=== PATIENT | male | born 1955 | race Caucasian/White ===

== ENCOUNTER → 2017-01-05 | Outpatient (CLI) | payer OTHER ==
[2017-01-05 11:36] LABS: Hemoglobin A1C 6.8 % (4.2-6.1)
== END ==
LOC: LABWHC1 10:58
PROVIDERS: ATTEND Family Medicine
DX: R73.9 Hyperglycemia, unspecified (principal)
CPT/HCPCS: 36415; 83036

== ENCOUNTER → 2022-08-20 | Outpatient (CLI) | payer OTHER ==
--- NOTE | 2022-08-20 11:06 | CA ---
Lexiscan Nuclear Stress Test Report Name: Filiberto Cotter Exam Date: 08/20/2022 10:00 Exam Location: [place] [facility] Ht (in): 68 Wt (lb): 178 BSA: 1.95 Ordering Phys: Denise Blevins DO Referring Phys: Marianna Alas PAC Technologist: Mani Garcia Age: 67 Gender: M : 1955 Procedure CPT: Indications: I20.9 angina pectoris ICD-10 Codes: Patient History: Medications: Meds past 24 hrs: Pretest Chest Pain: STRESS TEST Lexiscan Protocol Exercise Duration (min:sec): 02:[address] Depressions (mm): Angina Score: Torres Score: Resting HR (bpm): 64 Peak HR (bpm): 98 Resting BP (mmHg): 133 / 67 Peak BP (mmHg): 148 / 64 MPHR: 153 Target HR: 130 % MPHR: 64 METS: 1.0 Total Dose: Peak Dose: Atropine: Double Product: 89479 BP Response: Stress Termination: PROTOCOL COMPLETE Stress Symptoms: CHEST PAIN 3-4 MINUTES IN RECOVERY Stress Summary: ECG ANALYSIS Resting ECG: Stress ECG: CONCLUSIONS At baseline EKG showed normal sinus rhythm, normal axis, ST depressions and T-wave inversions V3 through V6. Patient recieved IV infusion of Lexiscan 0.4mg and at peak infusion EKG showed mild accentuation of baseline EKG abnormalities. Patient did have chest tightness with Lexiscan infusion and improved after a few minutes into rest. Conclusions: 1. Nonspecific EKG portion secondary baseline EKG abnormalities 2. Nuclear imaging to be reported separately. 3. Chest pain noted with Lexiscan infusion concerning for angina Dr. Obey Hurd DO (Electronically Signed) Final Date: 20 August 2022 11:05
--- NOTE | 2022-08-20 12:30 | NM ---
EXAMINATION TYPE: NM stress lexiscan cardiolite DATE OF EXAM: 08/20/2022 COMPARISON: NONE HISTORY: I20.9 angina TECHNIQUE: After the intravenous administration of 7.9 mCi Tc 99m Sestamibi - Cardiolite resting SPE CT images acquired 45 minutes post injection. The patient received 0.4mg Lexiscan, 25.9 mCi Tc 99m Sestamibi - Stress images obtained [address] injection FINDINGS: Review of stress and rest SPECT images demonstrates decreased perfusion involving the inferior wall o n stress images. Stress-induced ischemia is not excluded. There is also decreased perfusion on stress images involving the anterior wall. Fixed defect involving the cardiac apex and septum. Gated analys is shows normal wall motion with an estimated left ventricular ejection fraction of 40 %. IMPRESSION: Findings felt to reflect stress-induced ischemia.
== END | disposition home or self-care (01) ==
LOC: RADNMMAIN 07:28
PROVIDERS: ATTEND Family Medicine
DX: I20.9 Angina pectoris, unspecified (principal); R07.9 Chest pain, unspecified; R94.31 Abnormal electrocardiogram [ECG] [EKG]
CPT/HCPCS: 93017; 78452; A9500

== ENCOUNTER → 2022-08-21 | Outpatient (CLI) | payer OTHER ==
[2022-08-21 23:59] LABS: HCT 38.6 % (39.6-50.0); HGB 12.6 g/dL (13.0-17.0); MCHC 32.6 g/dL (32.0-37.0); MCV 88.9 fL (80.0-97.0); Mean Platelet Volume 10.8 fL (9.5-12.2); NRBC Per 100 WBC 0 /100 WBCS (0.0-0.0); Platelet Count 145 X 10*3/uL (140-440); RBC 4.34 X 10*6/uL (4.40-5.60); RDW 11.8 % (11.5-14.5); WBC 5.39 X 10*3/uL (4.50-10.00)
[2022-08-22 00:06] LABS: African American GFR (CKD) 102.1 (60.0-200.0); Anion Gap 15.6 mmol/L (10.00-18.00); Blood Urea Nitrogen 7.2 mg/dL (9.0-27.0); Carbon Dioxide 25.4 mmol/L (20.0-27.5); Non-African American GFR(CKD) 88.1 (60.0-200.0); Potassium 4.2 mmol/L (3.5-5.5)
== END | disposition home or self-care (01) ==
LOC: LABPAT 14:31
PROVIDERS: ATTEND Internal Medicine
DX: Z01.812 Encounter for preprocedural laboratory examination (principal); R07.9 Chest pain, unspecified
CPT/HCPCS: 80051; 82565; 84520; 85027

== ENCOUNTER 2022-08-22 09:35 | Day surgery (SDC) | payer OTHER ==
[~2022-08-22 09:35] MED LIST: ALPRAZolam 0.25 MG TAB PO PRN; ALPRAZolam 0.5 MG TAB PO PRN; ASPIRIN 325 MG TAB PO ONE; ATORVASTATIN 80 MG TAB PO ONE; HEPARIN SODIUM,PORCINE 10,000 UNIT in SODIUM CHLORIDE 0.9% 1,000 ML IRRIGATION PRN; HEPARIN SODIUM,PORCINE 2,500 UNIT in SODIUM CHLORIDE 0.9% 250 ML IRRIGATION PRN; NITROGLYCERIN SL TABS 0.4 MG TAB SUBLINGUAL PRN; SODIUM CHLORIDE 0.9% 1,000 ML in EMPTY BAG 1 BAG IV SCH
[2022-08-22] MEDS ORDERED: SODIUM CHLORIDE 0.9% 1,000 ML IV ONE (09:45)
[2022-08-22 09:52] VITALS: RESP 16; TEMP 98.2
[2022-08-22] MEDS ORDERED: VERAPAMIL 2.5 MG/ML 2 ML AMP ONE ×2 (09:54→10:45)
[2022-08-22] MEDS ORDERED: HEPARIN SODIUM 1,000 UN/ML (10ML VL) ONE (09:54)
[2022-08-22] MEDS ORDERED: fentaNYL (PF) 50 MCG/ML 2 ML AMP ONE (09:55)
[2022-08-22 09:57] LABS: Glucose,Whole Blood 129 mg/dL (70-110)
[2022-08-22] MEDS: MIDAZOLAM HCL 10 MG/10 ML VIAL IV ONE ×2 (10:19→10:35)
[2022-08-22] MEDS ORDERED: fentaNYL (PF) 50 MCG/ML 2 ML AMP IV ONE (10:19)
[2022-08-22] MEDS ORDERED: LIDOCAINE 1% INJ 10MG/ML (30 ML VIAL-PF) SQ ONE (10:21)
[2022-08-22] MEDS ORDERED: VERAPAMIL SYRINGE (5 MG/10 ML) INTRAARTER ONE (10:25)
[2022-08-22] MEDS: HEPARIN SODIUM 1,000 UN/ML (10ML VL) IV ONE ×7 (10:32→12:15)
[2022-08-22] MEDS ORDERED: IOPAMIDOL-370 100ML BTL INJ ONE ×2 (11:28→12:15)
[2022-08-22] MEDS ORDERED: NITROGLYCERIN SL TABS 0.4 MG TAB SUBLINGUAL PRN (13:23)
[2022-08-22] MEDS ORDERED: RX INFO: IV CONTRAST WAS GIVEN 1 EACH MISC MISCELLANE PRN (13:25)
[2022-08-22] MEDS ORDERED: ATROPINE SULFATE 0.1 MG/ML 10ML SYRINGE IV PRN (13:25)
[2022-08-22] MEDS ORDERED: MAG HYDROX/AL HYDROX/SIMETH 30 ML CUP PO PRN (13:25)
[2022-08-22] MEDS ORDERED: ZOLPIDEM 5 MG TAB PO PRN (13:25)
[2022-08-22 17:04] VITALS: BP 137/81; PULSE 74
--- NOTE | 2022-08-22 20:17 | P.PRCINT ---
Percutaneous Coronary Int. - Percutaneous Coronary Intervention Percutaneous Coronary Intervention: PROCEDURES PERFORMED: Left heart catheterization, bilateral coronary angiography, IVUS LAD, CSI rotational atherectomy LAD, PCI mid LAD with a 3.5 x 28mm Xience ENOCH, post dilated with a 3.5 NC balloon INDICATION: Chest pain new over the last 3-4 weeks, while at rest consistent with unstable angina, abnormal stress test CONSENT:I have discussed the risks, benefits and alternative therapies for the above-mentioned procedure and for both sedation/analgesia as well as necessary blood product administration, if indicated, as they pertain to this patient. The patient has indicated understanding and acceptance of the risks and procedures discussed. PROCEDURE: After the risks, benefits and alternatives of the above mentioned procedure explained in detail with the patient, informed consent was obtained. Patient was taken to the catheterization lab and prepped and draped in usual fashion. 1% lidocaine was used to anesthetize the right radial artery. Initially there was some resistance at the wrist while advancing the 6Fr sheath and therefore a 5Fr sheath was placed in the right radial artery for diagnostic portion. Left coronary angiography was performed with a 5-[place] JL 3.5 catheter and right coronary angiography was performed with a 5-[place] JR5 catheter in various views. A 5-[place] FR5 catheter was inserted into the left ventricle and pressure measurements were obtained. The decision was made to perform PCI of the mid LAD. The 5Fr sheath was exchanged for the 6Fr sheath with still some difficulty fully advancing however was able to be advanced. Heparin was given. A 6Fr CLS 3.5 guide was used to engage the left main. A 0.014 BMW wire was advanced into the distal LAD. There was some difficulty advancing balloons and therefore a Guideliner was used. Balloon angioplasty was performed with a 2.0 x 12 then 2.5 x 15mm balloon. IVUS was used which showed diffuse heavy calcification, reference vessel 3.5mm however unable to advance catheter past the mid portion of the lesion. Given heavy calcification, decision was made to perform CSI rotational atherectomy. The guideliner and BMW wire were removed and a 0.014 Viper wire was advanced. Next CSI rotational atherectomy was performed at low and high speeds for 3 and 4 runs respectively. Next balloon angioplasty was performed with a 3.5 NC balloon. Next a 3.5 x 28mm Xience ENOCH was placed from just beyond diagonal 1 branch to just short of a larger septal branch. IVUS was performed which showed excellent stent apposition and sizing. There was some difficulty advancing past the distal edge of the stent secondary to tortuosity and calcification. There was a small step down distally however diffuse disease and no dissection. The wire was pulled and final angiograms were performed. Pre intervention there was 95% stenosis and MICHELLE 2 flow and post intervention there was <10% stenosis and MICHELLE 3 flow. The right radial sheath was removed and a TR band was placed with hemostasis achieved. The patient tolerated the procedure well. Patient was transported back to the post catheterization holding area in stable condition. Conscious Sedation: Patient was monitored under the direct supervision of vision of myself for conscious sedation using Versed and fentanyl for a total duration of 121 minutes HEMODYNAMICS: Ao: 106/48 LV: 102/9, LVEDP 22mmHg SELECTIVE CORONARY ARTERIOGRAPHY: LEFT MAIN: The left main is a large caliber vessel which bifurcates into the LAD and circumflex. There is no significant stenosis. LEFT ANTERIOR DESCENDING CORONARY ARTERY: LAD is a large caliber vessel which wraps around to the apex. There is diffuse heavily calcified 20-30% stenosis of the proximal to mid LAD. There is heavy circumferential calcium of the mid LAD with a 95% stenosis. There is MICHELLE 2 flow. Diagonal 1 branch is a small caliber branch with a proximal 90% stenosis. Otherewise there are mild luminal irregularities. LEFT CIRCUMFLEX CORONARY ARTERY: Left circumflex is a moderate caliber vessel with a proximal 60% stenosis at the level of a small to moderate caliber OM1 branch. OM1 has a proximal 60% stenosis and a mid OM1 50% stenosis. Otherwise there are mild luminal irregularities of the mid to distal circumflex and OM2. RIGHT CORONARY ARTERY: The right coronary artery is a small to moderate caliber vessel which gives off a PDA and PLV branch and is the dominant vessel. There is heavy calcification throughout and a proximal RCA 100% stenosis. FINAL IMPRESSION: 1. CAD as described above including 100% RCA stenosis with left to right collaterals, 95% mid LAD stenosis, 90% small caliber diagonal 1 stenosis, 60% proximal circumflex and proximal OM1 stenosis 2. S/p CSI rotational atherectomy LAD, PCI mid LAD with a 3.5 x 28mm Xience ENOCH, post dilated with a 3.5 NC balloon 3. Elevated left sided filling pressures PLAN: 1. Aggressive risk factor modification per most recent ACC/AHA guidelines. 2. Continue dual antiplatelets for 12 months. 3. If continues to have angina, may consider iFR of circumflex or PCI DENTAL CERAMIST of RCA however appears to be a long calcified lesion.
[2022-08-22] MEDS ORDERED: EZETIMIBE 10 MG TAB PO SCH (21:00)
[2022-08-22] MEDS ORDERED: MONTELUKAST 10 MG TAB PO SCH (21:00)
[2022-08-22] MEDS ORDERED: GABAPENTIN 300 MG CAP PO SCH (21:00)
[2022-08-23] MEDS ORDERED: PANTOPRAZOLE 40 MG TABLET PO SCH (07:30)
[2022-08-23] MEDS ORDERED: lisinopriL 20 MG TAB PO SCH (09:00)
[2022-08-23] MEDS ORDERED: ISOSORBIDE MONONITRATE ER 30 MG TAB.ER.24H PO SCH (09:00)
[2022-08-23] MEDS ORDERED: CLOPIDOGREL 75 MG TAB PO SCH (09:00)
[2022-08-23] MEDS ORDERED: ASPIRIN 81 MG PO SCH (09:00)
== END 2022-08-22 17:14 | disposition home or self-care (01) ==
LOC: CATHCVL 09:35
PROVIDERS: ATTEND Internal Medicine
DX: I25.110 Atherosclerotic heart disease of native coronary artery with unstable angina pectoris (principal); I10 Essential (primary) hypertension; E78.5 Hyperlipidemia, unspecified; E11.9 Type 2 diabetes mellitus without complications; R94.39 Abnormal result of other cardiovascular function study
CPT/HCPCS: 92978; 93458; C9602; J2001; J3010; J1644; Q9967; J2250

== ENCOUNTER → 2022-08-24 | Outpatient (CLI) | payer OTHER ==
[2022-08-24 22:44] LABS: African American GFR (CKD) 96.8 (60.0-200.0); Non-African American GFR(CKD) 83.6 (60.0-200.0)
== END | disposition home or self-care (01) ==
LOC: LABWHC1 16:17
PROVIDERS: ATTEND Internal Medicine
DX: Z98.890 Other specified postprocedural states (principal)
CPT/HCPCS: 36415; 82565

== ENCOUNTER → 2023-08-26 | Outpatient (CLI) | payer OTHER ==
--- NOTE | 2023-08-26 16:26 | XR ---
EXAMINATION TYPE: XR ribs bilat w pa chest xray DATE OF EXAM: 08/26/2023 3:41 PM CLINICAL INDICATION:Male, 68 years old with history of R07.81; [facility] COMPARISON: None TECHNIQUE: XR ribs bilat w pa chest xray; Frontal and oblique views of the ribs with frontal chest ra diograph. FINDINGS: The ribs have a normal appearance. No evidence of fracture. Overall, the lungs are clear. The cardiac silhouette is normal in size. The remaining osseous structures are intact. IMPRESSION: Limited evaluation secondary to overlapping soft tissues. No acute osseous pathology.
== END | disposition home or self-care (01) ==
LOC: RADXRMAIN 15:28
PROVIDERS: ATTEND Nurse Practitioner Family
DX: R07.81 Pleurodynia (principal)
CPT/HCPCS: 71111

== ENCOUNTER → 2023-09-10 | Day surgery (SDC) | payer MEDICARE ==
[2023-09-06 10:36] VITALS: BMI 26.2
[~2023-09-10] MED LIST changes: -ALPRAZolam 0.25 MG TAB PO PRN; -ALPRAZolam 0.5 MG TAB PO PRN; -ASPIRIN 325 MG TAB PO ONE; -ATORVASTATIN 80 MG TAB PO ONE; -HEPARIN SODIUM,PORCINE 10,000 UNIT in SODIUM CHLORIDE 0.9% 1,000 ML IRRIGATION PRN; -HEPARIN SODIUM,PORCINE 2,500 UNIT in SODIUM CHLORIDE 0.9% 250 ML IRRIGATION PRN; +LACTATED RINGERS 1,000 ML IV ONE; +LACTATED RINGERS 1,000 ML IV SCH; +LIDOCAINE 1% (10MG/ML) FOR IV START INTRADERMA PRN; -NITROGLYCERIN SL TABS 0.4 MG TAB SUBLINGUAL PRN; +PROPOFOL 10 MG/ML 20 ML VIAL IV ONE; -SODIUM CHLORIDE 0.9% 1,000 ML in EMPTY BAG 1 BAG IV SCH
[2023-09-10 09:25] VITALS: RESP 16; TEMP 97.2
[2023-09-10 09:36] LABS: Glucose,Whole Blood 137 mg/dL (70-110)
--- NOTE | 2023-09-10 10:04 | P.PCN ---
Date of Procedure: 09/10/23 Procedure(s) Performed: BRIEF HISTORY: Patient is a 68-year-old pleasant white male scheduled for an elective colonoscopy as a part of prior history of colon polyps. PROCEDURE PERFORMED: Colonoscopy with snare polypectomy. PREOPERATIVE DIAGNOSIS: History of colon polyps. IV sedation per Anesthesia. PROCEDURE: After informed consent was obtained, the patient, was brought into the endoscopy unit. IV sedation was administered by Anesthesia under continuous monitoring. Digital rectal examination was normal. Initially the Olympus CF-160 flexible video colonoscope was then inserted in the rectum, gradually advanced into the cecum without any difficulty. Careful examination was performed as the scope was gradually being withdrawn. Ileocecal valve and the appendiceal orifice were visualized and appeared normal. Prep was excellent. Mucosa of the cecum, normal. In the ascending colon there was a 5 mm and 1 cm polyp that was removed by snare polypectomy. In the transverse colon there was a 5 mm, 1 cm and 1.2 cm polyp removed by snare polypectomy. In the descending colon there was a 6 mm polyp that was removed by cold snare polypectomy. Rest of the descending colon, sigmoid colon, and rectum appeared normal. Retroflexion was performed in the rectum and no lesions were seen. The patient tolerated the procedure well. IMPRESSION: 5 mm and 1 cm ascending colon polyp status post polypectomy 5 mm, 1 cm and 1.2 cm transverse colon polyp status post polypectomy 6 mm descending colon polyp status post cold snare polypectomy RECOMMENDATIONS: Findings of this examination were discussed with the patient as well as his family. He was advised to follow with the biopsy results. If the biopsy reveals adenoma he can have a repeat colonoscopy in.
[2023-09-10 10:16] VITALS: PULSE 65
[2023-09-10 10:41] VITALS: BP 136/78
== END ==
LOC: ORWHC2ENDO 08:26
PROVIDERS: ATTEND Internal Medicine Gastroenterology
DX: Z12.11 Encounter for screening for malignant neoplasm of colon (principal); D12.3 Benign neoplasm of transverse colon; D12.2 Benign neoplasm of ascending colon; D12.4 Benign neoplasm of descending colon; I25.10 Atherosclerotic heart disease of native coronary artery without angina pectoris; I10 Essential (primary) hypertension; E78.5 Hyperlipidemia, unspecified; K21.9 Gastro-esophageal reflux disease without esophagitis; Z79.84 Long term (current) use of oral hypoglycemic drugs; Z79.02 Long term (current) use of antithrombotics/antiplatelets; Z86.010 Personal history of colon polyps; Z79.82 Long term (current) use of aspirin; Z79.899 Other long term (current) drug therapy
CPT/HCPCS: 88305; 45385; J2704